=== PATIENT | female | born 1985 ===

== ENCOUNTER 2017-02-02 19:48 | Emergency (ER) | payer OTHER ==
[2017-02-02 19:49] VITALS: BMI 22.5
[2017-02-02 20:38] VITALS: BP 120/75; PULSE 97; RESP 17; TEMP 98.1; O2SAT 100
--- NOTE | 2017-02-02 20:53 | ED PDOC ---
HPI: Female Pain Time Seen by Provider: 02/02/17 20:39 Chief Complaint (Nursing): Female Genitourinary Chief Complaint (Provider): : vaginal spotting History Per: Patient History/Exam Limitations: no limitations Onset/Duration Of Symptoms: Days (2) Current Symptoms Are (Timing): Still Present Additional History Per: Patient Additional Complaint(s): 31 y/o female, approx 6 weeks gestation, presents with vaginal spotting x 2 days. Denies fever, nausea/vomiting, chest pain, shortness of breath, palpitations, abdominal pain, changes in bowel movements, dysuria, hematuria. Abnormal Vaginal Bleeding: Yes Last Menstral Period: 12/22/16 : 2 Para: 0 Miscarriage: 1 Past Medical History Reviewed: Historical Data, Nursing Documentation, Vital Signs Vital Signs: Last Vital Signs Temp 98.1 F 02/02/17 20:33 Pulse 97 H 02/02/17 20:33 Resp 17 02/02/17 20:33 BP 120/75 02/02/17 20:33 Pulse Ox 100 02/02/17 20:33 - Medical History PMH: No Chronic Diseases Denies: Chronic Kidney Disease - Family History Family History: States: Unknown Family Hx - Home Medications Home Medications: Ambulatory Orders Medication Instructions Recorded Ranitidine HCl [Zantac 75] 75 mg PO BID #10 tablet 08/27/16 - Allergies Allergies/Adverse Reactions: Allergies Allergy/AdvReac Type Severity Reaction Status Date / Time aspirin Allergy GI upset Verified 02/02/17 20:37 Review of Systems ROS Statement: Except As Marked, All Systems Reviewed And Found Negative Genitourinary Female: Positive for: Vaginal Bleeding Physical Exam - Reviewed Nursing Documentation Reviewed: Yes Vital Signs Reviewed: Yes - Physical Exam Appears: Positive for: Well, Non-toxic, No Acute Distress Head Exam: Positive for: ATRAUMATIC, NORMAL INSPECTION, NORMOCEPHALIC Skin: Positive for: Normal Color Eye Exam: Positive for: Normal appearance ENT: Positive for: Normal ENT Inspection Cardiovascular/Chest: Positive for: Regular Rate, Rhythm Respiratory: Positive for: Normal Breath Sounds Gastrointestinal/Abdominal: Positive for: Normal Exam Pelvic Exam: Positive for: Discharge (brown), Other (exam chaperoned by invasive cardiovascular technologistsaran Marcos) Back: Positive for: Normal Inspection Extremity: Positive for: Normal ROM Neurologic/Psych: Positive for: Alert, Oriented - Laboratory Results Result Diagrams: 02/02/17 22:24 02/02/17 22:24 Urine POC: Positive Urine dip results: Positive for: Blood (trace). Negative for: Leukocyte Esterase, Nitrate, Ketones - ECG O2 Sat by Pulse Oximetry: 100 - Progress ED Course And Treament: labs, urine, Ob u/s EXAM: US , Transvaginal CLINICAL HISTORY: 31 years old, female; Signs and symptoms; Lmp or gestational age (in weeks): ; Antepartum complications; Other: Spotting; Additional info: Spotting, approx 6 weeks TECHNIQUE: Real-time transvaginal obstetrical ultrasound of the maternal pelvis and a first trimester with image documentation. Transvaginal imaging was used for better evaluation of the fetus and adnexa. EXAM DATE/TIME: 02/02/2017 8:51 PM COMPARISON: No relevant prior studies available. FINDINGS: The uterus measures 6 x 3 x 6 cm. The cervix measures 4.2 cm. There is an intrauterine gestational sac containing a yolk sac and pole. Gestational sac measurements correspond to a gestational age of 5 weeks 2 days. Guttenberg-rump length measurements correspond to a gestational age of 6 weeks 1 day. A heart rate was not obtained. The maternal ovaries are normal bilaterally. Color flow and doppler vascular waveforms were demonstrated to both ovaries. IMPRESSION: Intrauterine gestational sac containing a yolk sac and pole, however no heart rate. Measurements correspond to gestational age of 5 weeks 5 days. Followup beta-hCG level and followup ultrasound recommended. Patient educated on findings, discharged with instructions to follow up in 48 hours for re-eval. REturn to ED for worsening/concerning symptoms. Disposition - Clinical Impression Clinical Impression: Threatened miscarriage - Patient ED Disposition Is Patient to be Admitted: No Counseled Patient/Family Regarding: Studies Performed, Diagnosis, Need For Followup - Disposition Disposition: Routine/Home Disposition Time: 00:24 Condition: STABLE Instructions: Threatened Miscarriage (ED) Print Language: BOTSWANAN
--- NOTE | 2017-02-02 22:22 | US ---
EXAM: US , Transvaginal CLINICAL HISTORY: 31 years old, female; Signs and symptoms; Lmp or gestational age (in weeks): 12/22/16; Antepartum complications; Other: Spotting; Additional info: Spotting, approx 6 weeks TECHNIQUE: Real-time transvaginal obstetrical ultrasound of the maternal pelvis and a first trimester with image documentation. Transvaginal imaging was used for better evaluation of the fetus and adnexa. EXAM DATE/TIME: 02/02/2017 8:51 PM COMPARISON: No relevant prior studies available. FINDINGS: The uterus measures 6 x 3 x 6 cm. The cervix measures 4.2 cm. There is an intrauterine gestational sac containing a yolk sac and pole. Gestational sac measurements correspond to a gestational age of 5 weeks 2 days. Fernando Salinas-rump length measurements correspond to a gestational age of 6 weeks 1 day. A heart rate was not obtained. The maternal ovaries are normal bilaterally. Color flow and doppler vascular waveforms were demonstrated to both ovaries. IMPRESSION: Intrauterine gestational sac containing a yolk sac and pole, however no heart rate. Measurements correspond to gestational age of 5 weeks 5 days. Followup beta-hCG level and followup ultrasound recommended.
[2017-02-02 22:32] LABS: BASO # 0.1 K/uL (0.0-0.2); BASO % 0.7 % (0.0-2.0); EOS # 0.3 K/uL (0.0-0.7); EOS % 2.6 % (0.0-4.0); HEMATOCRIT 40.9 % (34.0-47.0); LYMPH # 3.6 K/uL (1.0-4.3); LYMPH % 37.8 % (20.0-40.0); MEAN CELL VOLUME 93.8 fl (81.0-99.0); MEAN CORPUSCULAR HGB CONC 34.1 g/dL (33.0-37.0); MEAN PLATELET VOLUME 10.2 fl (7.2-11.7); MONO # 0.7 K/uL (0.0-0.8); NEUT % 51.9 % (50.0-75.0); NRBC % 0.1 % (0.0-0.0); RED CELL DISTRIBUTION WIDTH 12.3 % (11.5-14.5); WHITE BLOOD COUNT 9.6 K/uL (4.8-10.8)
[2017-02-02 22:41] LABS: ALB/GLOB RATIO 1.3 (1.0-2.1); ALKALINE PHOSPHATASE 60 U/L (38-126); ALT/SGPT 19 U/L (9-52); AST/SGOT 22 U/L (14-36); BILIRUBIN,TOTAL 0.8 mg/dl (0.2-1.3); BLOOD UREA NITROGEN 10 mg/dl (7-17); CALCIUM 9.4 mg/dL (8.4-10.2); CARBON DIOXIDE 25 mmol/L (22-30); CHLORIDE 103 mmol/L (98-107); GFR AFRICAN-AMERICAN > 60; GLUCOSE,RANDOM 94 mg/dL (65-105); POTASSIUM 3.8 MMOL/L (3.6-5.0); SODIUM 140 mmol/l (132-148); TOTAL PROTEIN 8.2 G/DL (6.3-8.2)
== END 2017-02-03 00:57 | disposition home or self-care (01) ==
LOC: H.ER 19:48
DX: O20.0 Threatened abortion (principal); Z3A.01 Less than 8 weeks gestation of pregnancy

== ENCOUNTER 2017-02-04 18:27 | Emergency (ER) | payer OTHER ==
[2017-02-04 18:27] VITALS: BMI 22.5
[2017-02-04 19:00] VITALS: BP 118/82; PULSE 112; RESP 18; TEMP 98; O2SAT 100
--- NOTE | 2017-02-04 19:36 | ED PDOC ---
HPI: Female Pain Time Seen by Provider: 02/04/17 19:00 Chief Complaint (Nursing): Female Genitourinary Chief Complaint (Provider): repeat labs History Per: Patient History/Exam Limitations: no limitations Additional Complaint(s): Minda Dumont is a 31 year old female, with no previous medical history, who presents to the ED with complaints of abnormal vaginal spotting for the past 2 days, she is currently 6 weeks . Patient was seen in the ED 2 days ago and reports being told to return for repeat labs. Patient denies experiencing any spotting yesterday but reports to noting brown spotting again today. Patient denies any abdominal pain. She reports last menstrual cycle on 01/22/17 and reports next OBGYN appointment on January. Abnormal Vaginal Bleeding: Yes Last Menstral Period: 01/22/17 : 2 Miscarriage: 1 (8 years ago) Past Medical History Reviewed: Historical Data, Nursing Documentation, Vital Signs Vital Signs: Last Vital Signs Temp 98 F 02/04/17 18:56 Pulse 112 H 02/04/17 18:56 Resp 18 02/04/17 18:56 BP 118/82 02/04/17 18:56 Pulse Ox 100 02/04/17 18:56 - Medical History PMH: No Chronic Diseases Denies: Chronic Kidney Disease - Surgical History Surgical History: No Surg Hx - Family History Family History: States: Unknown Family Hx - Living Arrangements Living Arrangements: With Family - Social History Current smoker - smoking cessation education provided: No Alcohol: None Drugs: Denies - Home Medications Home Medications: Ambulatory Orders Medication Instructions Recorded Ranitidine HCl [Zantac 75] 75 mg PO BID #10 tablet 08/27/16 - Allergies Allergies/Adverse Reactions: Allergies Allergy/AdvReac Type Severity Reaction Status Date / Time aspirin Allergy GI upset Verified 02/02/17 20:37 Review of Systems ROS Statement: Except As Marked, All Systems Reviewed And Found Negative Gastrointestinal: Negative for: Abdominal Pain Genitourinary Female: Positive for: Vaginal Bleeding (brown spotting ) Physical Exam - Reviewed Nursing Documentation Reviewed: Yes - Physical Exam Appears: Positive for: Well, Non-toxic, No Acute Distress Head Exam: Positive for: ATRAUMATIC, NORMAL INSPECTION, NORMOCEPHALIC Skin: Positive for: Normal Color, Warm, DRY Eye Exam: Positive for: Normal appearance ENT: Positive for: Normal ENT Inspection Neck: Positive for: Normal Cardiovascular/Chest: Positive for: Regular Rate, Rhythm Respiratory: Positive for: CNT, Normal Breath Sounds Gastrointestinal/Abdominal: Positive for: Normal Exam, Bowel Sounds, Soft. Negative for: Tenderness Neurologic/Psych: Positive for: Alert, Oriented - ECG O2 Sat by Pulse Oximetry: 100 (RA) Pulse Ox Interpretation: Normal Medical Decision Making Medical Decision Making: Initial Plan: * physical exam * disposition Patient was informed that previous records were reviewed showing an IUP in her ultrasound and she is blood type positive. Suggested to patient to call OBGYN and get an earlier appointment. Scribe Attestation: Documented by Joan Fletcher, acting as a scribe for Sophia Melchor PA-C. Provider Scribe Attestation: All medical record entries made by the Scribe were at my direction and personally dictated by me. I have reviewed the chart and agree that the record accurately reflects my personal performance of the history, physical exam, medical decision making, and the department course for this patient. I have also personally directed, reviewed, and agree with the discharge instructions and disposition. Disposition - Clinical Impression Clinical Impression: Vaginal bleeding in - Disposition Disposition Time: 19:23 Condition: STABLE Instructions: (ED) Print Language: PU[place] RICAN
== END 2017-02-04 19:39 | disposition home or self-care (01) ==
LOC: H.ER 18:27
DX: O20.8 Other hemorrhage in early pregnancy (principal)

== ENCOUNTER 2017-09-26 21:09 | Emergency (ER) | payer BC, OTHER ==
[2017-09-27 02:49] VITALS: BP 125/80; PULSE 91; TEMP 99.3
--- NOTE | 2017-09-27 08:40 | OBHP ---
Datetime: 09/26/2017 21:32 Admit Comment, IP Provider: Patient is a @ 39.5 wks, presents with uterine contractions, denies VB, leaking, +FM, no dysnuria. No antepartum issues, no medical problems, no allergies, no medicatio n VE=/-3 [id number] mod javier, +accels, no decels TOCO = q 2-4 mins A/P 1. Patient 1 cm dilated and ruled out for labor 2. Reactive NST 3. Labor precautions given, discharge home, f/u in office tomorrow Pelvic Type - PN: Adequate Extremities - PN: Normal Abdomen - PN: Normal Back - PN: Normal Breast - PN: Normal Lungs - PN: Normal Heart - PN: Normal Thyroid - PN: Normal Neurologic - PN: Normal HEENT - PN: Normal General - PN: Normal FHR - Baseline A Provider: 125 Contraction Comments Provider: q 2-4 mins Vital Signs Provider: Reviewed; Within Normal Limits NICHD Variability Prov Fetus A: Moderate 6-25bpm NICHD Accel Fetus A IP Provider: [id number] NICHD Decel Fetus A IP Provider: None Dilatation, Provider: 1 Effacement, Provider: 50 Station, Provider: -3 Genitourinary Exam: Normal DTRs - PN: Normal
== END 2017-09-26 21:43 | disposition home or self-care (01) ==
LOC: H.EROB2 21:09
DX: O47.1 False labor at or after 37 completed weeks of gestation (principal); Z3A.39 39 weeks gestation of pregnancy; O26.93 Pregnancy related conditions, unspecified, third trimester; R10.2 Pelvic and perineal pain

== ENCOUNTER 2017-10-01 04:34 | Emergency (ER) | payer BC ==
[2017-10-01] MEDS: Lactated Ringer's 1,000 ML IV SCH ×2 (06:30→07:30)
[2017-10-01 06:43] VITALS: BMI 28.1
[2017-10-01 07:43] LABS: ALB/GLOB RATIO 1.1 (1.0-2.1); ALBUMIN 3.8 g/dL (3.5-5.0); ALT/SGPT 32 U/L (9-52); AST/SGOT 25 U/L (14-36); BLOOD UREA NITROGEN 6 mg/dl (7-17); CALCIUM 9.6 mg/dL (8.4-10.2); GFR AFRICAN-AMERICAN > 60; GFR NON-AFRICAN AMERICAN > 60; URIC ACID 4.6 mg/Dl (2.2-7.5)
[2017-10-01 07:49] LABS: BASO % 0.4 % (0.0-2.0); EOS # 0.1 K/uL (0.0-0.7); EOS % 1.3 % (0.0-4.0); HEMOGLOBIN 13.3 g/dL (12.0-16.0); LYMPH # 2.4 K/uL (1.0-4.3); LYMPH % 29.6 % (20.0-40.0); MEAN CELL VOLUME 94.7 fl (81.0-99.0); MEAN CORPUSCULAR HEMOGLOBIN 32.9 pg (27.0-31.0); MEAN CORPUSCULAR HGB CONC 34.7 g/dL (33.0-37.0); MEAN PLATELET VOLUME 10.4 fl (7.2-11.7); MONO # 0.9 K/uL (0.0-0.8); MONO % 10.5 % (0.0-10.0); NEUT # 4.7 K/uL (1.8-7.0); NEUT % 58.2 % (50.0-75.0); NRBC % 0.2 % (0.0-0.0); RBC 4.06 Mil/uL (3.80-5.20); RED CELL DISTRIBUTION WIDTH 13.8 % (11.5-14.5); WHITE BLOOD COUNT 8.2 K/uL (4.8-10.8)
--- NOTE | 2017-10-01 08:32 | OBHP ---
Datetime: 10/01/2017 06:00 IP Adm Impression: Term, intrauterine ; No Active Labor IP Admit Plan: Observation/Evaluation Admit Comment, IP Provider: 32 y/o F at 40 weeks GA, HARSHA 10/01/17, c/o uterine CTX that beg an at 04:30am, every 5 minutes and 9/10 intensity. No VB or LOF. FM present. Pt denies headache, visu al disturbances, dizziness, CP, SOB, N/V, urinary complaints or pruritus. Allergies: Motrin adn Aspirin-GI symptoms. Meds: PNV and vitamin D. OBHx: 1x SAB. PNC Clinic: [facility] with Dr Saunders. PN Labs: remarkable for GBS positive, blood group A pos, RPR neg, rubella immune, HBsAg, HIV neg. PMHx: denied PSHx: denied FHx: NC SHx: No tobacco, alcohol or rec drugs. A/P 32 y/o F with IUP at 40 weeks GA, with CTX, not in active labor, w/ elevated BP measurements. -Observation -FHT monitoring -IV hydration. -Pre-eclampsia work-up. -Will re-evaluated in 1-2 hour. Case discussed with Dr Cid, OB animal control supervisor. Gabriel PGY-1. Addendum: Eyes on exam and patient at presentation and follow-up. No evidence of labor at this time. Materna l well-being and well-being reassuring at this time. Patient discharged home with labor precaut ions. Discussed with patient AND questions answered. Extremities - PN: Normal Back - PN: Normal Breast - PN: Normal Lungs - PN: Normal Heart - PN: Normal Thyroid - PN: Normal Neurologic - PN: Normal HEENT - PN: Normal General - PN: Normal FHR - Baseline A Provider: 130s IP Hx Assessment: The History has been Reviewed and is Current EGA AdmitDate IP: 40.0 Vital Signs Provider: Reviewed IP Chief Complaint: Uterine contractions; Maternal discomfort NICHD Accel Fetus A IP Provider: 15X15 FHR Category Provider Fetus A: Category I Dilatation, Provider: 1 Effacement, Provider: 50 Station, Provider: -3 Genitourinary Exam: Normal DTRs - PN: Normal
[2017-10-01 13:40] VITALS: BP 131/85; PULSE 92; RESP 18; TEMP 98.3
== END 2017-10-01 08:55 | disposition home or self-care (01) ==
LOC: H.EROB2 04:34 → H.EROB 04:53 → H.EROB2 08:55
DX: O47.1 False labor at or after 37 completed weeks of gestation (principal); O48.0 Post-term pregnancy; Z3A.40 40 weeks gestation of pregnancy; O26.93 Pregnancy related conditions, unspecified, third trimester; R10.2 Pelvic and perineal pain
CPT/HCPCS: 80053; 83615; 84550; 85025; 85384; 96360; 99283; J7120

== ENCOUNTER 2017-10-01 21:55 | Inpatient (IN) | payer BC ==
[2017-10-02 00:13] VITALS: BMI 29.0
[2017-10-02] MEDS ORDERED: Nalbuphine 20 mg/ml Inj (1 ml) IVP PRN (00:13)
[2017-10-02] MEDS ORDERED: Lactated Ringer's 1,000 ML IV SCH ×3 (00:30→03:45)
[2017-10-02 03:42] LABS: BASO % 0.4 % (0.0-2.0); EOS # 0.1 K/uL (0.0-0.7); EOS % 0.6 % (0.0-4.0); HEMOGLOBIN 13.5 g/dL (12.0-16.0); LYMPH # 1.9 K/uL (1.0-4.3); LYMPH % 21.3 % (20.0-40.0); MEAN CELL VOLUME 96.3 fl (81.0-99.0); MEAN CORPUSCULAR HGB CONC 34.2 g/dL (33.0-37.0); MEAN PLATELET VOLUME 10.7 fl (7.2-11.7); MONO % 10.7 % (0.0-10.0); NEUT # 6.1 K/uL (1.8-7.0); RBC 4.09 Mil/uL (3.80-5.20); RED CELL DISTRIBUTION WIDTH 13.8 % (11.5-14.5); WHITE BLOOD COUNT 9.1 K/uL (4.8-10.8)
[2017-10-02] MEDS ORDERED: Penicillin G Potassium 5 MU in Sodium Chloride 0.9% 50 ML IVPB ONE (03:53)
[2017-10-02] MEDS ORDERED: Fentanyl/Bupivacaine HCl 250 ML EPI ONE (03:57)
[2017-10-02] MEDS ORDERED: Bupivacaine HCl 0.25% PF (10 ml) Inj ONE (03:57)
[2017-10-02 04:39] LABS: BLOOD UREA NITROGEN 7 mg/dl (7-17); CALCIUM 9.5 mg/dL (8.4-10.2); GFR AFRICAN-AMERICAN > 60; GFR NON-AFRICAN AMERICAN > 60
[2017-10-02 04:40] LABS: ALT/SGPT 37 U/L (9-52); AST/SGOT 40 U/L (14-36)
[2017-10-02 04:47] LABS: ALB/GLOB RATIO 1.2 (1.0-2.1)
[2017-10-02] MEDS ORDERED: Oxytocin 30 UNITS in Sodium Chloride 0.9% 500 ML IV ONE (08:14)
--- NOTE | 2017-10-02 08:28 | OBADHP ---
Datetime: 10/02/2017 08:23 Admit Comment, IP Provider: 32 y/o F at 40 weeks GA, HARSHA 10/01/17, c/o uterine CTX that beg an at 04:30am. She states pain has been 10 since 18:00, q5min with 60sec duration. No VB or LOF. FM present. Pt denies headache, visual disturbances, dizziness, CP, SOB, N/V, urinary complaints or pruritus. Allergies: Motrin adn Aspirin-GI symptoms. Meds: PNV and vitamin D. OBHx: 1x SAB. PNC Clinic: [facility] with Dr Saunders. PN Labs: remarkable for GBS positive, blood group A pos, RPR neg, rubella immune, HBsAg, HIV neg. PMHx: denied PSHx: denied FHx: NC SHx: No tobacco, alcohol or rec drugs. I:40 weeks labor p: admit. Datetime: 10/01/2017 22:25 Presentation-Admit: Vertex FHR - Baseline A Provider: 120 Membranes, Provider: Intact Contraction Comments Provider: 5min NICHD Variability Prov Fetus A: Moderate 6-25bpm NICHD Accel Fetus A IP Provider: 15X15 FHR Category Provider Fetus A: Category I NICHD Decel Fetus A IP Provider: None Dilatation, Provider: 2 Effacement, Provider: 80 Station, Provider: -1 Datetime: 10/01/2017 06:00 Extremities - PN: Normal Back - PN: Normal Breast - PN: Normal Lungs - PN: Normal Heart - PN: Normal Thyroid - PN: Normal Neurologic - PN: Normal HEENT - PN: Normal General - PN: Normal IP Hx Assessment: The History has been Reviewed and is Current Vital Signs Provider: Reviewed IP Chief Complaint: Uterine contractions; Maternal discomfort Genitourinary Exam: Normal DTRs - PN: Normal EGA AdmitDate IP: 40.0 IP Adm Impression: Term, intrauterine ; No Active Labor IP Admit Plan: Observation/Evaluation Datetime: 09/26/2017 21:32 Pelvic Type - PN: Adequate Abdomen - PN: Normal
[2017-10-02] MEDS ORDERED: Lidocaine 1% Inj (20ml) ONE (09:51)
[2017-10-02] MEDS ORDERED: Benzocaine/Menthol SPRAY TOP PRN ×2 (12:24→16:01)
[2017-10-02] MEDS ORDERED: Oxycodone/Acetaminophen 5/325 mg Tab PO PRN ×3 (12:24→16:01)
--- NOTE | 2017-10-02 12:30 | OBDS ---
MATERNAL INFORMATION Delivery Anesthesia: Epidural Provider Comments: Delivered a live baby boy at 12:07 PM the baby was bulb suctioned on the perineum and transferred to the maternal chest. The cord was clamped and cut 3 vessels noted cord blood was o btained and sent to the lab. Placenta was delivered at 12:09 PM intact, estimated blood loss was 100 mL. There was a second-degree laceration which was repaired with 2-0 Rapide. The mother tolerated the procedure well and the baby went to the well baby nursery with Apgars 9/9 weighing 3735 g LABOR SUMMARY EDC: 10/01/2017 00:00 No. Babies in Womb: 1 Attempted: No Labor Anesthesia: Epidural LABOR INFORMATION Reason for Induction: Not Applicable Onset of Labor: 10/02/2017 05:45 Oxytocin: N/A Group B Beta Strep: Positive Steroids Given: None Reason Steroids Not Administered: Not Applicable MEMBRANES Membranes Rupture Method: Artificial Amniotic Fluid Color: Clear Amniotic Fluid Amount: Moderate Amniotic Fluid Odor: Normal VAGINAL DELIVERY Episiotomy: None Laceration Extension: Second Degree Laceration Type: Perineal; Vaginal Laceration Repair: Yes Sponge Count Correct: Yes Sharps Count Correct: Yes BABY A INFORMATION Born in Route : No : N/A Forceps: N/A INFORMATION BABY A Gestational Age at Delivery: 40.1 Gestational Status: Term
[2017-10-02] MEDS: Oxycodone/Acetaminophen 5/325 mg Tab PO PRN (20:16)
[2017-10-03] MEDS: Oxycodone/Acetaminophen 5/325 mg Tab PO PRN (03:35)
[2017-10-03 07:22] LABS: HEMOGLOBIN 10.4 g/dL (12.0-16.0); MEAN CELL VOLUME 96.5 fl (81.0-99.0); MEAN CORPUSCULAR HEMOGLOBIN 33.5 pg (27.0-31.0); MEAN CORPUSCULAR HGB CONC 34.7 g/dL (33.0-37.0); RBC 3.12 Mil/uL (3.80-5.20); RED CELL DISTRIBUTION WIDTH 14.3 % (11.5-14.5); WHITE BLOOD COUNT 9.5 K/uL (4.8-10.8)
--- NOTE | 2017-10-03 08:29 | OBPPN ---
Datetime: 10/03/2017 08:19 PP Pain Prov: Within normal limits PP Nausea Prov: Denies PP Abdomen/Uterus Prov: Normal PP Lochia Prov: Normal PP Vulva/Perineum Prov: Normal PP Progress Prov: Normal PP Impression Prov: Normal progression PP Plan Prov: Continue present management PP Progress Note Prov: PPD 1 s/p , doing well, breast feeding Continue current management Vital Signs Provider PP: Reviewed
[2017-10-03] MEDS: Multivitamin With Minerals Tab PO SCH (08:33)
[2017-10-03] MEDS: Hydrocortisone 2.5% (Rectal) CREAM PR SCH ×2 (08:33→19:30)
[2017-10-03] MEDS ORDERED: Multivitamin With Minerals Tab PO SCH (09:00)
[2017-10-04] MEDS: Multivitamin With Minerals Tab PO SCH (08:48)
--- NOTE | 2017-10-04 12:26 | OBDCSUM ---
Datetime: 10/04/2017 10:21 Discharged to, Provider: Home Follow up at, Provider: Dr. Saunders Disch Instr Activity: Normal activity; May be up to bathroom; May be up for meals; May Shower Disch Instr Diet: Regular Discharge Diagnosis, Provider: Term Delivered Discharge Time: 10/04/2017 10:21 Follow up in weeks, Provider: 4-6weeks Disch Referrals: None Disch Activity Restrictions: Minimize walking; Minimize stair-climbing; No sexual activity; Nothing in vagina - [place], tampons, douche Datetime: 10/01/2017 08:29 Disch Activity Restrictions: Minimize stair-climbing; No sexual activity; Nothing in vagina - Interc ourse, tampons, douche
--- NOTE | 2017-10-04 12:26 | OBPPN ---
Datetime: 10/04/2017 09:00 PP Pain Prov: Within normal limits PP Nausea Prov: Denies PP Flatus Prov: Yes PP BM Prov: Yes PP Breasts Prov: Not Done PP Heart Prov: Normal PP Lungs Prov: Normal PP Abdomen/Uterus Prov: Normal PP Lochia Prov: Normal PP Vulva/Perineum Prov: Normal PP CVA Tenderness Prov: Normal PP Extremities Prov: Normal PP Progress Prov: Normal PP Impression Prov: Normal progression PP Plan Prov: Discharge PP Progress Note Prov: A pos H/H 08/01 Maribell farias ready to go home A: S/P day 2 PLAN: discharge home; pain meds: Percoset Follow up in 6w Vital Signs Provider PP: Reviewed; Within Normal Limits
[2017-10-04 18:59] VITALS: BP 111/72; PULSE 101; RESP 20; TEMP 97.5; O2SAT 96
== END 2017-10-04 14:42 | disposition home or self-care (01) | DRG 775 ==
LOC: H.EROB2 21:55 → H.L&D 10-02 03:33 → H.OB/GYN 10-02 15:45 → UNDODISIN 10-02 15:45
PROVIDERS: ADMIT Obstetrics & Gynecology; ATTEND Obstetrics & Gynecology
PROC: 10E0XZZ Delivery of Products of Conception, External Approach (ICD-10-PCS; principal; 2017-10-02)
PROC: 0KQM0ZZ Repair Perineum Muscle, Open Approach (ICD-10-PCS; 2017-10-02)
PROC: 10907ZC Drainage of Amniotic Fluid, Therapeutic from Products of Conception, Via Natural or Artificial Opening (ICD-10-PCS; 2017-10-02)
PROC: 4A1HXCZ Monitoring of Products of Conception, Cardiac Rate, External Approach (ICD-10-PCS; 2017-10-02)
DX: O48.0 Post-term pregnancy (principal); O70.1 Second degree perineal laceration during delivery; O99.824 Streptococcus B carrier state complicating childbirth; Z37.0 Single live birth; Z3A.40 40 weeks gestation of pregnancy; Z88.6 Allergy status to analgesic agent

== ENCOUNTER 2017-12-05 18:36 | Emergency (ER) | payer BC ==
[2017-12-05 18:37] VITALS: BMI 29.0
[2017-12-05 18:59] VITALS: BP 110/71; PULSE 92; RESP 18; TEMP 98.5; O2SAT 100
--- NOTE | 2017-12-05 20:20 | ED PDOC ---
HPI: Abdomen Time Seen by Provider: 12/05/17 20:06 Chief Complaint (Nursing): Abdominal Pain Chief Complaint (Provider): abdominal pain History Per: Patient History/Exam Limitations: no limitations Onset/Duration Of Symptoms: Days (1week), Waxing/Waning Current Symptoms Are (Timing): Still Present Location Of Pain/Discomfort: Epigastric, Periumbilical Last Bowel Movement: Today Additional Complaint(s): 32 y/o female presents with intermittent mid/upper abdominal pain x 1 week. Denies fever, nausea/vomiting, cough, congestion, changes in bowel movements, urinary symptoms, vaginal bleeding/discharge. Past Medical History Reviewed: Historical Data, Nursing Documentation, Vital Signs Vital Signs: Last Vital Signs Temp 98.5 F 12/05/17 18:54 Pulse 92 H 12/05/17 18:54 Resp 18 12/05/17 18:54 BP 110/71 12/05/17 18:54 Pulse Ox 100 12/05/17 22:17 - Medical History PMH: No Chronic Diseases Denies: Chronic Kidney Disease - Family History Family History: States: Unknown Family Hx - Living Arrangements Living Arrangements: With Family - Home Medications Home Medications: Ambulatory Orders Medication Instructions Recorded Vit Calc,Iron,Folic 1 tab PO DAILY 10/01/17 [ Vitamins] Hydrocortisone 2.5% (Rectal) 1 applic SC BID tube 10/04/17 [Anusol-HC] oxyCODONE/Acetaminophen [Percocet 1 tab PO Q4 PRN #20 tab 10/04/17 5/325 mg Tab] Famotidine [Pepcid] 20 mg PO BID #20 tab 12/06/17 - Allergies Allergies/Adverse Reactions: Allergies Allergy/AdvReac Type Severity Reaction Status Date / Time aspirin Allergy GI upset Verified 10/01/17 07:56 ibuprofen [From Motrin] Allergy VOMITING Verified 10/02/17 00:12 Review of Systems ROS Statement: Except As Marked, All Systems Reviewed And Found Negative Gastrointestinal: Positive for: Abdominal Pain Physical Exam - Reviewed Nursing Documentation Reviewed: Yes Vital Signs Reviewed: Yes - Physical Exam Appears: Positive for: Well, Non-toxic, No Acute Distress Head Exam: Positive for: ATRAUMATIC, NORMAL INSPECTION, NORMOCEPHALIC Skin: Positive for: Normal Color Eye Exam: Positive for: Normal appearance ENT: Positive for: Normal ENT Inspection Cardiovascular/Chest: Positive for: Regular Rate, Rhythm Respiratory: Positive for: Normal Breath Sounds Gastrointestinal/Abdominal: Positive for: Bowel Sounds, Soft, Tenderness ( epigastric) Back: Positive for: Normal Inspection Extremity: Positive for: Normal ROM Neurologic/Psych: Positive for: Alert, Oriented - Laboratory Results Result Diagrams: 12/05/17 20:30 12/05/17 20:30 - ECG O2 Sat by Pulse Oximetry: 100 - Progress ED Course And Treament: labs, urine, abdomen u/s EXAM: US Abdomen Limited, Right Upper Quadrant CLINICAL HISTORY: The patient is a 32 years female; Pain; Abdominal pain; Epigastric; Additional info: Upper abd pain 12/05/2017 8:14 PM TECHNIQUE: Real-time ultrasound of the right upper quadrant with image documentation. COMPARISON: No relevant prior studies available. FINDINGS: Liver: Unremarkable. Gallbladder: Unremarkable. No gallstones. Common bile duct:: measures up to 1.6 mm Pancreas: Unremarkable as visualized. Right kidney: Unremarkable. No hydronephrosis. IMPRESSION: No evidence of cholelithiasis. On re-eval, patient still with periumbilical tenderness; CT abd/pelvis ordered to r/out appendicitis EXAM: CT Abdomen and Pelvis With Intravenous Contrast EXAM DATE/TIME: 12/05/2017 10:21 PM CLINICAL HISTORY: 32 years old, female; Pain; Abdominal pain; Periumbilical; Additional info: Abd pain. Sent phy. Doc. TECHNIQUE: Axial computed tomography images of the abdomen and pelvis with intravenous contrast. All CT scans at this facility use one or more dose reduction techniques, viz.: automated exposure control; ma/kV adjustment per patient size (including targeted exams where dose is matched to indication; i.e. head); or iterative reconstruction technique. Coronal and sagittal reformatted images were created and reviewed. CONTRAST: 90 mL of [id number] administered intravenously. COMPARISON: US - ABDOMEN LIMITED 2017-12-05 20:34 FINDINGS: Artifacts: Motion artifact degrades image quality. Lower thorax: Heart size is normal. There is a small hernia. There is minimal scarring at the lung bases ABDOMEN: Liver: There is fatty infiltration of the liver. Gallbladder and bile ducts: unremarkable Pancreas: unremarkable Spleen: unremarkable Adrenals: unremarkable Kidneys and ureters: unremarkable Stomach and bowel: Stomach is incompletely distended which accentuates the gastric wall.Bowel rotation is normal. Small bowel is distended with fluid and air. There is no obstruction. Cecum is low in the pelvis. There is mild fecalization of the terminal ileum. Visualized torsion of the appendix is unremarkable. There is moderate stool and air in the colon. Appendix: See stomach and bowel PELVIS: Bladder: unremarkable Reproductive: Uterus and adnexal structures are unremarkable. ABDOMEN and PELVIS: Intraperitoneal space: There is a small amount of free fluid in the cul-de-sac. There is fluid in the right adnexa..There is no free air. Bones/joints: There is sclerosis of the sacroiliac joints left greater than right.There are no acute osseous abnormalities. Soft tissues: There is a small fat containing umbilical hernia. Vasculature: Vascular structures are unremarkable. Lymph nodes: There is no pathologic adenopathy. 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 Disposition - Clinical Impression Clinical Impression: Abdominal pain - Patient ED Disposition Is Patient to be Admitted: No Counseled Patient/Family Regarding: Studies Performed, Diagnosis, Need For Followup, Rx Given - Disposition Disposition: Routine/Home Disposition Time: 00:16 Condition: IMPROVED Prescriptions: Famotidine [Pepcid] 20 mg PO BID #20 tab Instructions: Acute Abdomen (Belly Pain) Forms: GonnaBe (Vietnamese) Print Language: TAMAZIGHT
[2017-12-05 20:33] LABS: BASO # 0.1 K/uL (0.0-0.2); BASO % 0.9 % (0.0-2.0); EOS % 0.7 % (0.0-4.0); HEMOGLOBIN 13.9 g/dL (12.0-16.0); LYMPH # 2.5 K/uL (1.0-4.3); LYMPH % 43.2 % (20.0-40.0); MEAN CELL VOLUME 92.6 fl (81.0-99.0); MEAN CORPUSCULAR HEMOGLOBIN 31.5 pg (27.0-31.0); MEAN PLATELET VOLUME 9.8 fl (7.2-11.7); MONO # 0.7 K/uL (0.0-0.8); MONO % 11.2 % (0.0-10.0); NEUT # 2.6 K/uL (1.8-7.0); NRBC % 0.1 % (0.0-0.0); RBC 4.42 Mil/uL (3.80-5.20); RED CELL DISTRIBUTION WIDTH 12.8 % (11.5-14.5); WHITE BLOOD COUNT 5.9 K/uL (4.8-10.8)
[2017-12-05 20:44] LABS: ALB/GLOB RATIO 1.3 (1.0-2.1); ALBUMIN 4.6 g/dL (3.5-5.0); ALT/SGPT 38 U/L (9-52); AST/SGOT 33 U/L (14-36); BLOOD UREA NITROGEN 8 mg/dl (7-17); CALCIUM 10.2 mg/dL (8.4-10.2); GFR AFRICAN-AMERICAN > 60; GFR NON-AFRICAN AMERICAN > 60; LIPASE 123 U/L (23-300)
[2017-12-05 21:25] LABS: SQUAMOUS EPITHIAL 33 /hpf (0-5); URINE BACTERIA RARE (<OCC); URINE BILIRUBIN NEGATIVE (NEGATIVE); URINE BLOOD NEGATIVE (NEGATIVE); URINE CLARITY CLOUDY (Clear); URINE COLOR YELLOW (YELLOW); URINE GLUCOSE (UA) NEG (Normal); URINE LEUKOCYTE ESTERASE MOD Leu/uL (Negative); URINE PROTEIN NEGATIVE (NEGATIVE)
[2017-12-05] MEDS ORDERED: Iohexol 300 100 ML IJ ONE (22:53)
--- NOTE | 2017-12-06 00:04 | CT ---
EXAM: CT Abdomen and Pelvis With Intravenous Contrast EXAM DATE/TIME: 12/05/2017 10:21 PM CLINICAL HISTORY: 32 years old, female; Pain; Abdominal pain; Periumbilical; Additional info: Abd pain. Sent phy. Doc. TECHNIQUE: Axial computed tomography images of the abdomen and pelvis with intravenous contrast. All CT scans at this facility use one or more dose reduction techniques, viz.: automated exposure control; ma/kV adjustment per patient size (including targeted exams where dose is matched to indication; i.e. head); or iterative reconstruction technique. Coronal and sagittal reformatted images were created and reviewed. CONTRAST: 90 mL of administered intravenously. COMPARISON: US - ABDOMEN LIMITED 2017-12-05 20:34 FINDINGS: Artifacts: Motion artifact degrades image quality. Lower thorax: Heart size is normal. There is a small hernia. There is minimal scarring at the lung bases ABDOMEN: Liver: There is fatty infiltration of the liver. Gallbladder and bile ducts: unremarkable Pancreas: unremarkable Spleen: unremarkable Adrenals: unremarkable Kidneys and ureters: unremarkable Stomach and bowel: Stomach is incompletely distended which accentuates the gastric wall.Bowel rotation is normal. Small bowel is distended with fluid and air. There is no obstruction. Cecum is low in the pelvis. There is mild fecalization of the terminal ileum. Visualized torsion of the appendix is unremarkable. There is moderate stool and air in the colon. Appendix: See stomach and bowel PELVIS: Bladder: unremarkable Reproductive: Uterus and adnexal structures are unremarkable. ABDOMEN and PELVIS: Intraperitoneal space: There is a small amount of free fluid in the cul-de-sac. There is fluid in the right adnexa..There is no free air. Bones/joints: There is sclerosis of the sacroiliac joints left greater than right.There are no acute osseous abnormalities. Soft tissues: There is a small fat containing umbilical hernia. Vasculature: Vascular structures are unremarkable. Lymph nodes: There is no pathologic adenopathy. IMPRESSION: Fatty liver, no acute solid visceral abnormality; no CT findings of appendicitis; small of fluid in the cul-de-sac and right adnexa, physiologic versus recent cyst rupture Additional nonemergent findings as described above.
--- NOTE | 2017-12-06 11:27 | US ---
HISTORY: Upper abdominal pain. COMPARISON: None. TECHNIQUE: Sonographic evaluation of the right upper quadrant of the abdomen. FINDINGS: LIVER: Measures 14.7 cm in length. Normal echogenicity of the liver parenchyma. No mass. No intrahepatic bile duct dilatation. GALLBLADDER: Unremarkable. No gallstones. COMMON BILE DUCT: Measures 2.75 mm. No stones. No dilatation. PANCREAS: Unremarkable as visualized. No mass. No ductal dilatation. RIGHT KIDNEY: Measures 4.2 x 11 cm in length. Normal echogenicity. No calculus, mass, or hydronephrosis. AORTA: No aneurysmal dilatation. IVC: Unremarkable. OTHER FINDINGS: None . IMPRESSION: No significant or acute findings to account for/ related to the clinical presentation. Concordant results (preliminary interpretation) provided by [facility]. Procedure Completed: 21:23 Preliminary ([facility]) Report: Dictated and Authenticated: 22:15 Final Interpretation: 11:21
== END 2017-12-06 00:55 | disposition home or self-care (01) ==
LOC: H.ER 18:36
DX: R10.9 Unspecified abdominal pain (principal)
CPT/HCPCS: 74177; 76705; 80053; 81003; 81025; 83690; 85025; 87086; 96374; 99283; Q9967